=== PATIENT | male | born 1995 | race Two or more races ===

== ENCOUNTER 2016-07-23 21:40 | Emergency (ER) | payer BC ==
[2016-07-23 22:12] VITALS: BP 127/69; PULSE 86; TEMP 98.4; BMI 38.6
--- NOTE | 2016-07-23 23:44 | PDOC ---
History of Present Illness - History of Present Illness Initial Comments: 07/24/16 00:26 The patient is a 20 year old female, with a significant past medical history of recurrent rectal pain and bleeding, who presents to the emergency department with hematochezia today. The patient states the pain in his rectum occurs during and after a bowel movement. He states the pain also keeps him up at night. He reports scheduling and appointment with GI, however, has not physically evaluated by the doctor. The patient states he notices bright red blood on the paper when he wipes and also some droplets in the toilet. He denies chest pain, shortness of breath, headache and dizziness. He denies fever, chills, nausea, vomit, diarrhea and constipation. He denies dysuria, frequency, urgency and hematuria. Allergies: NKDA <Dennise Mccann - Last Filed: 07/24/16 00:26> <Chente Jhaveri - Last Filed: 07/24/16 00:54> - General Chief Complaint: Bleeding from Anus Stated Complaint: RECTAL BLEEDING Time Seen by Provider: 07/23/16 23:01 Past History <Dennise Mccann - Last Filed: 07/24/16 00:26> - Psycho/Social/Smoking Cessation Hx Suicidal Ideation: No Smoking History: Current every day smoker Number of Cigarettes Smoked Daily: 10 Information on smoking cessation initiated: No 'Breaking Loose' booklet given: 02/17/16 Hx Alcohol Use: No Drug/Substance Use Hx: No Substance Use Type: None <Chente Jhaveri - Last Filed: 07/24/16 00:54> - Past Medical History Allergies/Adverse Reactions: Allergies Allergy/AdvReac Type Severity Reaction Status Date / Time No Known Allergies Allergy Verified 07/23/16 21:44 Home Medications: Ambulatory Orders NK [No Known Home Medication] 02/17/16 Review of Systems - Review of Systems Able to Perform ROS?: Yes Comments:: 07/24/16 00:30 CONSTITUTIONAL: No fever, no chills, no fatigue EYES: No visual changes ENT: No ear pain, no sore throat CARDIOVASCULAR: No chest pain, no palpitations RESPIRATORY: No cough, no SOB GI: (+) rectal pain and bleeding. No abdominal pain, no nausea, no vomiting, no constipation, no diarrhea GENITOURINARY: No dysuria, no frequency, no hematuria MUSKULOSKELETAL: No backpain, no joint pain, no myalgias SKIN: No rash NEURO: No headache <Dennise Mccann - Last Filed: 07/24/16 00:26> *Physical Exam - Vital Signs Last Vital Signs Temp Pulse Resp BP Pulse Ox 98.4 F 86 14 127/69 97 07/23/16 21:45 07/23/16 21:45 07/23/16 21:45 07/23/16 21:45 07/23/16 21:45 - Physical Exam Comments: 07/24/16 00:30 CONSTITUTIONAL: Well-appearing; well-nourished; in no apparent distress HEAD: Normocephalic; atraumatic EYES: PERRL; EOM intact ENMT: External appears normal; normal oropharynx NECK: Supple; non-tender; no cervical lymphadenopathy CARD: Normal S1, S2; no murmurs, rubs, or gallops RESP: Normal chest excursion with respiration; breath sounds clear and equal bilaterally; no wheezes, rhonchi, or rales ABD: Soft, non-distended; non-tender; no palpable organomegaly, no palpable hernias EXT: Normal ROM in all four extremities; non-tender to palpation; distal pulses intact SKIN: Warm, dry, no rash NEURO: No focal neurological deficiencies. RECTAL: (+) Deferred by patient. <Dennise Mccann - Last Filed: 07/24/16 00:26> - Vital Signs Last Vital Signs Temp Pulse Resp BP Pulse Ox 98.4 F 86 14 127/69 97 07/23/16 21:45 07/23/16 21:45 07/23/16 21:45 07/23/16 21:45 07/23/16 21:45 <Chente Jhaveri - Last Filed: 07/24/16 00:54> ED Treatment Course - LABORATORY CBC & Chemistry Diagram: 07/23/16 23:08 <Dennise Mccann - Last Filed: 07/24/16 00:26> - LABORATORY CBC & Chemistry Diagram: 07/24/16 00:20 <Chente Jhaveri - Last Filed: 07/24/16 00:54> Medical Decision Making - Medical Decision Making 07/24/16 00:51 Patient is well-appearing 20-year-old male who presents with recurrent rectal pain and intermittent bleeding likely related to an anal fissure. In the ER, patient is awake and alert, hemodynamically stable, in no distress. Patient refused a rectal exam. Abdominal exam reveals no focal tenderness. I suspect an anal fissure at this time. Will discharge with GI follow-up, instructions to perform sitz bath and increase fiber in diet. <Chente Jhaveri - Last Filed: 07/24/16 00:54> *DC/Admit/Observation/Transfer - Attestations Scribe Attestion: 07/24/16 00:31 Documentation prepared by Dennise Mccann, acting as medical staff specialist for Chente Jhaveri MD <Dennise Mccann - Last Filed: 07/24/16 00:26> - Attestations Physician Attestion: 07/24/16 00:51 The documentation was prepared by the scribe under my direct supervision. I have reviewed the documentation which correctly represents the findings, medical decision-making and critical action taken by me. <Chente Jhaveri - Last Filed: 07/24/16 00:54> Diagnosis at time of Disposition: Anorectal pain, Rectal hemorrhage - Discharge Dispostion Disposition: HOME Condition at time of disposition: Stable - Referrals Referrals: Issa Dowell MD [Staff Physician] - - Patient Instructions Printed Discharge Instructions: DI for Anal Fissure
[2016-07-24 00:34] LABS: BASOPHIL 0.4 % (0-2.0); EOSINOPHIL 2.2 % (0-4.5); MCH 28.7 pg (25.7-33.7); MCHC 33.5 g/dl (32.0-35.9); MEAN CELL VOLUME 85.7 fl (80-96); NEUTROPHILS 56.2 % (42.8-82.8); PLATELET COUNT 292 K/MM3 (134-434); WHITE BLOOD COUNT 10.2 K/mm3 (4.0-10.0)
== END 2016-07-24 01:07 | disposition home or self-care (01) ==
LOC: JER 21:40
DX: K62.5 Hemorrhage of anus and rectum (principal); K62.89 Other specified diseases of anus and rectum; F17.210 Nicotine dependence, cigarettes, uncomplicated
CPT/HCPCS: 36415; 85025; 99282-25